=== PATIENT | female | born 1965 | race Caucasian/White ===

== ENCOUNTER 2016-07-23 10:49 | Outpatient (CLI) ==
[2016-07-23 12:57] LABS: BASOPHILS # (AUTO) 0.1 K/uL (0-0.2); BASOPHILS % (AUTO) 0.8 % (0.0-3.0); EOSINOPHILS # (AUTO) 0.2 K/ul (0.0-0.7); EOSINOPHILS % (AUTO) 3.1 % (0.0-7.0); HEMATOCRIT 39.2 % (37.0-47.0); HEMOGLOBIN 12.9 g/dl (12.0-16.0); IMMATURE GRANULOCYTE % (AUTO) 0.8 % (0.0-5.0); LYMPHOCYTES # (AUTO) 2.1 K/uL (0.60-3.4); LYMPHOCYTES % (AUTO) 31.8 (10.0-50.0); MEAN CORPUSCULAR HEMOGLOBIN 33.2 pg (27.0-31.0); MEAN CORPUSCULAR HGB CONC 32.9 (31.8-35.4); MONOCYTES # (AUTO) 0.5 K/uL (0.4-2.0); MONOCYTES % (AUTO) 8.3 (0-10); NEUTROPHILS # (AUTO) 3.6 K/ul (2.0-6.9); NEUTROPHILS % (AUTO) 55.2; PLATELET COUNT 277 10^3/uL (140-440); RED BLOOD COUNT 3.88 10^6/ul (4.20-5.40); WHITE BLOOD COUNT 6.54 K/ul (4.6-10.2)
[2016-07-23 13:30] LABS: ALBUMIN 3.7 g/dL (3.4-5.0); ALBUMIN/GLOBULIN RATIO 0.95; ANION GAP 14.2; BILIRUBIN,TOTAL 0.62 mg/dL (0.00-1.20); BUN/CREATININE RATIO 15.06; CALCIUM 9.2 mg/dL (8.2-10.2); CHOL/HDL RATIO 2.6 (4.5-5.5); CREATININE 0.73 mg/dL (0.60-1.30); POTASSIUM 4.2 mmol/L (3.5-5.10); TOTAL PROTEIN 7.6 g/dL (6.4-8.2)
== END 2016-07-23 10:50 | disposition home or self-care (01) ==
LOC: LAB 10:49
PROVIDERS: ATTEND Nurse Practitioner Family
DX: E75.6 Lipid storage disorder, unspecified (principal); F32.9 Major depressive disorder, single episode, unspecified; F41.9 Anxiety disorder, unspecified
CPT/HCPCS: 36415; 80053; 80061; 84439; 84443; 85025

== ENCOUNTER 2016-07-28 14:10 | Outpatient (CLI) ==
--- NOTE | 2016-07-30 08:25 | MAMMO ---
EXAM: Bilateral digital screening mammogram History: Baseline screening Findings: MLO and CC views of bilateral breasts demonstrate heterogeneously dense breast parenchyma which can obscure small lesions. Seen on the MLO views, there are bilateral superior breast possibl e masses. No suspicious microcalcifications. Impression: Possible bilateral breast masses seen only on the MLO views. Recommend further evaluat ion with spot compression views and possible ultrasound. BIRADS 0
== END 2016-07-28 14:11 | disposition home or self-care (01) ==
LOC: RAD 14:10
PROVIDERS: ATTEND Nurse Practitioner Family
DX: Z12.31 Encounter for screening mammogram for malignant neoplasm of breast (principal)

== ENCOUNTER 2016-08-04 10:17 | Outpatient (CLI) ==
--- NOTE | 2016-08-04 11:25 | US ---
EXAM: Bilateral breast ultrasound. History: Bilateral breast masses. Comparison: Bilateral diagnostic mammogram 08/04/2016 Technique: Multiple sonographic images through the bilateral breast were obtained. Color duplex Do ppler was used to interrogate vascular flow. Findings: Simple right breast cysts with the largest measuring 2.7 cm at 10 o'clock. There is also a 0.7 cm simple cyst within the right breast at 9 o'clock. These cysts correlate with the mammograph ic abnormalities. No suspicious masses. Impression: Benign bilateral breast cysts. Return to routine screening mammography schedule. BIRADS 2
--- NOTE | 2016-08-04 11:36 | MAMMO ---
EXAM: Bilateral digital diagnostic mammogram History: Bilateral breast masses. Comparison: Bilateral mammogram 07/28/2016 Findings: Bilateral breast density is heterogeneous. Additional spot compression views of both artem asts confirm the presence of bilateral upper-outer quadrant breast masses. No suspicious microcalci fications. Impression: Indeterminate bilateral breast masses. Recommend further evaluation with bilateral artem ast ultrasound. BIRADS 0
== END 2016-08-04 10:18 | disposition home or self-care (01) ==
LOC: RAD 10:17
PROVIDERS: ATTEND Nurse Practitioner Family
DX: R92.8 Other abnormal and inconclusive findings on diagnostic imaging of breast (principal)